=== PATIENT | female | born 1940 | race Caucasian/White ===

== ENCOUNTER 2022-01-27 15:14 | Inpatient (IN) ==
[2022-01-27] MEDS: LR 1,000 ML IV 1,000 ML IV SCH (18:14)
[2022-01-27 22:11] LABS: BASOPHILS # (AUTO) 0.1 X10^3/uL (0.0-0.1); BASOPHILS % (AUTO) 0.9 % (0.2-1.0); EOSINOPHILS # (AUTO) 0.2 x10^3/uL (0.0-0.2); EOSINOPHILS % (AUTO) 3.9 % (0.9-2.9); HEMATOCRIT 35.5 % (36.0-47.0); LYMPHOCYTES # (AUTO) 1.8 X10^3/uL (1.3-2.9); LYMPHOCYTES % (AUTO) 27.8 % (21.0-51.0); MEAN CORPUSCULAR HEMOGLOBIN 31.9 pg (27.0-34.0); MEAN CORPUSCULAR HGB CONC 33.9 g/dL (33.0-35.0); MEAN PLATELET VOLUME 9.5 fL (7.4-11.0); MONOCYTES # (AUTO) 0.6 x10^3/uL (0.3-0.8); MONOCYTES % (AUTO) 9.1 % (0.0-13.0); NEUTROPHILS # (AUTO) 3.7 x10^3/uL (2.2-4.8); NEUTROPHILS % (AUTO) 58.3 % (42.0-75.0); RED BLOOD COUNT 3.78 X10^6/uL (3.5-5.4); RED CELL DISTRIBUTION WIDTH 13.4 % (11.6-16.5); WHITE BLOOD COUNT 6.4 X10^3/uL (3.6-10.0)
--- NOTE | 2022-01-27 22:11 | DR.H&P ---
H&P History & Physical for Day of: H&P Date: 01/27/22 Chief Complaint Chief Complaint: Non -healing wound left Achilles tendon Allergies Allergies Allergy/AdvReac Type Severity Reaction Status Date / Time No Known Drug Allergies Allergy Verified 01/27/22 17:18 History of Present Illness History of Present Illness: Is 81 year old female was referred by doctor Fina for severe ischemia of the left leg with ankle brachial index of 0. 4 and a non- healing wound to the left Achilles tendon. She's had the not healing for several months. She is diabetic but does not complain of any significant pain. She walks very little and has over the last months due to the wound and also probably due to rest pain with she is not categorizing as such . 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 She is following routinely by Dr. Shanks ( cardiology) Mathews. She denies chest pain. She also has a history of diabetes and hypertension. says that she does have some dementia. Past Medical History Past Medical History: Coronary Artery Disease (Treated medically, no stents ), Diabetes and CT (history CT in the past ); denies CHF Family History Family Medical History: Diabetes Mellitus, Cancer and Coronary Artery Disease Social History Does patient currently use any type of tobacco product: No Alcohol Use: None Drug Use: None Prescription drug monitoring program results: PDMP reviewed and no concerns identified Medications Home Medications: No Known Drug Allergies Allergy (Verified 01/27/22 17:18) CONTINUE taking the following medications amlodipine 10 mg PO ONCE 01/27/22 [History] atorvastatin 80 mg PO QHS 01/27/22 [History] carvedilol 25 mg PO BID 01/27/22 [History] cholecalciferol (vitamin D3) [Vitamin D3] 125 mcg PO ONCE 01/27/22 [History] clopidogrel 75 mg PO ONCE 01/27/22 [History] glyburide 2.5 mg PO BID 01/27/22 [History] lisinopril 40 mg PO ONCE 01/27/22 [History] spironolactone 25 mg PO DAILY 01/27/22 [History] Labs Labs: Laboratory POC Glucose (mg/dL) 137 mg/dL (65-99) H 01/27/22 19:31 SARS CoV-2 RNA Rapid EDGAR Negative (NEGATIVE) 01/27/22 15:50 Review of Systems Constitutional: See HPI Eyes: No Symptoms Reported ENT: No Symptoms Reported Respiratory: No Symptoms Reported Cardiovascular: No Symptoms Reported Gastrointestinal: No Symptoms Reported Genitourinary: No Symptoms Reported Musculoskeletal: No Symptoms Reported Physical Exam Vital Signs: Temperature 98.2 F Pulse Rate [Right Radial] 66 Respiratory Rate 18 Blood Pressure [Right Arm] 128/62 O2 Sat by Pulse Oximetry 94 Respiratory: Clear Throughout Cardiovascular: Normal and Other (Palpable femoral pulse on the right. Very weak femoral pulse on the left . Absent pulses both ankles ) : Normal Auscultation: Bowel Sounds: Normal Palpation: Normal Tenderness: Normal Mood Description: Flat Affect: Depressed Speech Pattern: Clear Assessment/Plan (1) Critical limb ischemia of left lower extremity: Status: Acute Plan: will obtain ankle-brachial indices and CT angiogram of the aorta with runoff tomorrow (2) Diabetes 1.5, managed as type 2: Status: Acute Plan: start her start her usual home medications. (3) Hypertension: Status: Acute Plan: Start her usual home medications (4) Chronic ischemic heart disease, unspecified: Status: Acute Plan: will obtain EKG and chest x-ray. This is in anticipation of surgical intervention. Will obtain records from her vice president media relations . (5) Hypercholesteremia: Status: Acute Plan: continue her usual home medications Review H&P Reviewed: Yes Patient was examined?: Yes
[2022-01-27 22:18] LABS: CALCIUM 9.2 mg/dL (8.5-10.1); CARBON DIOXIDE 26.1 mmol/L (21-32); CREATININE 2.02 mg/dL (0.55-1.02)
[2022-01-28] MEDS: LR 1,000 ML IV 1,000 ML IV SCH ×2 (05:13→20:28)
--- NOTE | 2022-01-28 05:22 | RAD ---
PROCEDURE: Chest X-ray 1 View .HISTORY: PRE-OP FOR LEFT FOOT .TECHNIQUE: AP view .COMPARISON: None .TECHNICAL QUALITY: Satisfactory .FINDINGS:Normal size heart .Mediastinum and hilar regions show no masses or lymphadenopathy .Normal central vascularity .No pulmonary consolidation, masses, pleural fluid, or pneumothorax .No acute bony abnormality .IMPRESSION:No active cardiopulmonary disease .Electronically signed by: Grant Cespedes (Jan 28, 2022 05:21:15)
[2022-01-28 06:13] LABS: BLOOD UREA NITROGEN 27 mg/dL (7-18); CARBON DIOXIDE 25.2 mmol/L (21-32); CHLORIDE 106 mmol/L (98-107); CREATININE 1.65 mg/dL (0.55-1.02); SODIUM 139 mmol/L (136-145); eGFR NON BLACK RACES 32 (>60)
[2022-01-28] MEDS: DIABETA PO SCH ×2 (07:14→16:30)
[2022-01-28] MEDS: NORVASC TAB 10 MG PO SCH (08:21)
[2022-01-28] MEDS: ALDACTONE TAB 25 MG PO SCH (08:21)
[2022-01-28] MEDS: COREG TAB 25 MG PO SCH ×2 (08:21→20:30)
[2022-01-28] MEDS: ZESTRIL TAB 40 MG PO SCH (08:21)
[2022-01-28] MEDS: VITAMIN D3 125 mcg (5,000 UNITS) PO SCH (08:23)
[2022-01-28] MEDS ORDERED: LOVENOX INJ 40 MG SYR SC SCH (09:00)
[2022-01-28] MEDS ORDERED: LOVENOX INJ 30 MG SYR SC SCH (09:00)
--- NOTE | 2022-01-28 12:55 | DR.CONSULT ---
CONSULT Consultation for Day of: Date: 01/28/22 Chief Complaint Chief Complaint: Left ankle ulcer Allergies Allergies Allergy/AdvReac Type Severity Reaction Status Date / Time No Known Drug Allergies Allergy Verified 01/27/22 17:18 History of Present Illness History of Present Illness: Mrs. Sosa is a 81 yo female with an ulcer to the left posterior leg along the achilles tendon. Patient was seen at bedside with her besides her. Patient with a Hx of dementia so her helped with information. The wound has been there for over 2 months. It is painful. They are unsure how this started. Patients has been treating this olive oil and honey. They report this has become worse and they made appointment to see Dr. Harden in clinic. She denies any f/c/n/v/calf pain/ sob. Past Medical History Past Medical History: Coronary Artery Disease (Treated medically, no stents ), Dementia, Diabetes and CO (history CO in the past ); denies CHF Family History Family Medical History: Diabetes Mellitus, Cancer and Coronary Artery Disease Social History Does patient currently use any type of tobacco product: No Alcohol Use: None Drug Use: None Medications Home Medications: No Known Drug Allergies Allergy (Verified 01/27/22 17:18) CONTINUE taking the following medications amlodipine 10 mg PO ONCE 01/27/22 [History] atorvastatin 80 mg PO QHS 01/27/22 [History] carvedilol 25 mg PO BID 01/27/22 [History] cholecalciferol (vitamin D3) [Vitamin D3] 125 mcg PO ONCE 01/27/22 [History] clopidogrel 75 mg PO ONCE 01/27/22 [History] glyburide 2.5 mg PO BID 01/27/22 [History] lisinopril 40 mg PO ONCE 01/27/22 [History] spironolactone 25 mg PO DAILY 01/27/22 [History] Review of Systems Musculoskeletal: Leg Pain (Left ankle pain along the achilles. ) Physical Exam Vital Signs: Temperature 98.1 F Pulse Rate [Left Dorsalis 70 Pedis] Pulse Rate [Right Radial] 70 Respiratory Rate 20 Blood Pressure [Right Arm] 152/65 O2 Sat by Pulse Oximetry 95 Cardiovascular: Other (DP and PT pulses are absent b/l. No hair to the distal LE b/l. Cap fill delayed b/l.) Tenderness: Other (Sensation intact to light touch b/l. Left ankle pain along the achilles. ) Skin: Other (Left posterior ankle wound. Eschar noted over the wound. No fluctuance. Serous drainage noted. The wound edges are cold to touch. Periwound erythema noted. No edema. 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 Sosa is a 81 year old female with a PMHx of DM, dementia, and PAD. Wound note to the left posterior leg. Painful on palpation. She is with VSS and NAD. No leukocytosis. Plan: Dressed with betadine, 4x4, cast padding, lightly wrapped tiesha Pending CTA exam. NWB on the left PT evaluation. NPO after midnight. Tentative plan for the OR on Thursday. Vanc 1 gram Q12 Stat MRI left ankle. Will monitor. Please do not hesitate to contact me with questions or concerns. Jonathan Pepper DPM Fellow [phone]
[2022-01-28] MEDS: VANCOMYCIN IV *PREMIX 1 G/200 ML BAG 1 G/200 ML PIGGYBACK IV SCH ×2 (14:15→20:30)
[2022-01-28] MEDS ORDERED: HALDOL PO ONE (15:15)
[2022-01-28] MEDS ORDERED: HALDOL PO PRN ×2 (15:16→16:00)
--- NOTE | 2022-01-28 15:16 | CT ---
HISTORYischemic left leg with tissue loss, planned surgical case. Hypertension and diabetes.STUDYCTA AORTA WITH RUNOFFCOMPARISONNoneTECHNIQUEMultiple CT axial images of the abdomen, pelvis, and lower extremity runoff were obtained before and after using IV contrast. 3D reconstructions utilizing axial MIPS imaging was performed and reviewed. Dose reduction techniques including Automated Exposure Control (AEC) and adjustment of mA and kV were utilized.Stenoses are measured using NASCET criteria.FINDINGSWithout contrast:Atherosclerotic calcification is present in the coronary arteries, aorta, and major branches. Calcified and gas containing gallstones are present.With contrast: No significant aortic stenosis or aneurysm. There is a linear area in the lumen in the infrarenal segment near the origin of the inferior mesenteric artery. This could be a focal dissection or ulcerated plaque within the right lateral wall of the atherosclerotic disease which is present. It only measures about 15 mm in craniocaudal length, 1.1 cm AP and 4 mm wide.All 3 mesenteric vessels are patent. Single patent artery to each kidney.A focal moderate stenosis present in the left common iliac artery. Left external iliac artery, right common iliac and right external iliac arteries are widely patent. Both internal iliac arteries are patent.Left leg: Severe focal stenosis is seen in the proximal superficial femoral artery. Then there is complete occlusion in the distal superficial femoral artery which is reconstituted after the adductor segment by deep femoral artery collaterals. The occluded segment measures between 9 and 10 cm. Popliteal artery has moderate disease but leads to a patent proximal anterior tibial artery. But the anterior tibial artery is occluded in the proximal calf as is the tibioperoneal trunk. Collaterals reconstitute the peroneal artery in the proximal calf and this is the only named branch extending to the foot.Right leg: Mild diffuse femoropopliteal artery disease is present. Severe trifurcation disease is noted with occlusion of all 3 vessels in the proximal calf. Collaterals reconstitute a peroneal artery in the mid calf which extends to the foot.Body: No inflammation around the gallbladder with stones. No hydronephrosis. No bowel obstruction or free air. Pelvic floor relaxation is present with prolapse of the pelvic structures externally into the perineum. I believe this is mostly the vagina and part of the rectum.IMPRESSION1. Moderate left common iliac artery stenosis2. Long segment occlusion of the left SFA3. Severe left trifurcation disease with a single reconstituted peroneal artery extending to the foot4. Severe right trifurcation disease with a single reconstituted peroneal artery extending to the foot5. Pelvic floor relaxation with prolapse6. Focal dissection versus plaque ulceration in the right lateral wall of the distal aortaElectronically signed by: Roldan Cortez (Jan 28, 2022 15:15:23)
[2022-01-28] MEDS ORDERED: LIPITOR TAB 80 MG ONE (19:23)
[2022-01-28] MEDS: SNACK - Diabetic Appropriate PO SCH (20:29)
[2022-01-28] MEDS: LIPITOR TAB 80 MG PO SCH (20:30)
--- NOTE | 2022-01-28 23:45 | NOTE.SOAP ---
Soap Note Note for Day of Date of Exam: 01/28/22 Subjective Data Subjective Data: CTA and ABIs completed . Patient with dementia and has been combative. Objective Data Temperature: 97.5 F Pulse Rate: 68 Respiratory Rate: 18 Blood Pressure: 134/58 O2 Sat by Pulse Oximetry: 97 Objective Data: Has eschar measuring 3 cm x 2 cm x 0.3 cm to left Achilles . CTA shows long segment SFA occlusion at the adductor canal and reconstitution of the popliteal and occlusion of the tib-peroneal trunk and occlusion of the proximal left AT artery. BRITTANIE on left is 0. BRITTANIE on right is 0.82 with occlusion of all trifurcation vessels on the right. Assessment Assessment: Non healing wound left leg with critical limb threatening ischemia. Plan Plan: Dr. Harden to debride left Achilles tomorrow. I will re-vascularize left leg on .
[2022-01-29] MEDS ORDERED: GLUTOSE 15 GEL ORAL PO ONE (05:17)
[2022-01-29 06:15] LABS: BASOPHILS # (AUTO) 0.1 X10^3/uL (0.0-0.1); BASOPHILS % (AUTO) 0.8 % (0.2-1.0); EOSINOPHILS # (AUTO) 0.3 x10^3/uL (0.0-0.2); EOSINOPHILS % (AUTO) 4.4 % (0.9-2.9); HEMATOCRIT 31.6 % (36.0-47.0); HEMOGLOBIN 10.8 g/dL (12.0-16.0); LYMPHOCYTES # (AUTO) 1.8 X10^3/uL (1.3-2.9); LYMPHOCYTES % (AUTO) 26.5 % (21.0-51.0); MEAN CORPUSCULAR HEMOGLOBIN 31.6 pg (27.0-34.0); MEAN CORPUSCULAR HGB CONC 34.1 g/dL (33.0-35.0); MEAN CORPUSCULAR VOLUME 92.6 fL (80.0-100.0); MEAN PLATELET VOLUME 9.4 fL (7.4-11.0); MONOCYTES # (AUTO) 0.7 x10^3/uL (0.3-0.8); MONOCYTES % (AUTO) 9.9 % (0.0-13.0); NEUTROPHILS % (AUTO) 58.4 % (42.0-75.0); RED BLOOD COUNT 3.42 X10^6/uL (3.5-5.4); RED CELL DISTRIBUTION WIDTH 13.7 % (11.6-16.5); WHITE BLOOD COUNT 6.9 X10^3/uL (3.6-10.0)
[2022-01-29 06:27] LABS: ALANINE AMINOTRANSFERASE 26 Units/L (12-78); ALBUMIN 3.1 g/dL (3.4-5.0); ALKALINE PHOSPHATASE 81 Units/L (46-116); ASPARTATE AMINO TRANSFERASE 28 Units/L (15-37); BLOOD UREA NITROGEN 23 mg/dL (7-18); CARBON DIOXIDE 22.7 mmol/L (21-32); CHLORIDE 106 mmol/L (98-107); COR CA(FOR HYPOALB) 9.7 mg/dL (8.5-10.1); CREATININE 1.74 mg/dL (0.55-1.02); SODIUM 137 mmol/L (136-145); TOTAL PROTEIN 6.5 g/dL (6.4-8.2); eGFR NON BLACK RACES 30 (>60)
[2022-01-29] MEDS: DIABETA PO SCH (06:35)
[2022-01-29] MEDS: PERCOCET TAB 5/325 MG PO PRN (07:15)
[2022-01-29] MEDS: VITAMIN D3 125 mcg (5,000 UNITS) PO SCH (09:46)
[2022-01-29] MEDS: ALDACTONE TAB 25 MG PO SCH (09:46)
[2022-01-29] MEDS: VANCOMYCIN IV *PREMIX 1 G/200 ML BAG 1 G/200 ML PIGGYBACK IV SCH ×2 (09:46→21:45)
[2022-01-29] MEDS: ZESTRIL TAB 40 MG PO SCH (09:47)
[2022-01-29] MEDS: COREG TAB 25 MG PO SCH ×2 (09:47→20:45)
[2022-01-29] MEDS: NORVASC TAB 10 MG PO SCH (09:47)
[2022-01-29] MEDS: LR 1,000 ML IV 1,000 ML IV SCH (10:12)
[2022-01-29] MEDS ORDERED: ZOFRAN INJ 4 MG VIAL IVP PRN (10:19)
[2022-01-29] MEDS: ATIVAN INJ 2 MG VIAL IVP PRN (11:37)
[2022-01-29] MEDS ORDERED: HALDOL PO PRN (12:00)
--- NOTE | 2022-01-29 12:37 | NOTE.SOAP ---
Soap Note Note for Day of Date of Exam: 01/29/22 Subjective Data Subjective Data: Patient stable. No more combative outbursts. For debridement of the left ankle wound today by Dr. Harden. MRI today. CTA show long segment occlusion of the left SFA and occlusion all trifurcation vessels. Objective Data Temperature: 98.1 F Pulse Rate: 65 Respiratory Rate: 18 Blood Pressure: 184/77 O2 Sat by Pulse Oximetry: 98 Objective Data: Left foot cool Assessment Assessment: Limb threatening ischemia left foot and leg. Plan Plan: Debride left foot today. Plan peripheral based intervention left leg tomorrow.
[2022-01-29] MEDS ORDERED: MARCAINE 0.25% INJ ONE (12:56)
[2022-01-29] MEDS ORDERED: VANCOMYCIN HCL ONE (12:56)
[2022-01-29] MEDS ORDERED: TOBRAMYCIN SULFATE ONE (12:57)
[2022-01-29] MEDS ORDERED: BETADINE SOLN ONE (13:07)
[2022-01-29] MEDS ORDERED: LR 1,000 ML IV 1,000 ML IV ONE (13:34)
--- NOTE | 2022-01-29 13:39 | MRI ---
HISTORYACHILLES TENDON WOUNDSTUDYEXT LOWER JOINT W/O CONCOMPARISONNone.TECHNIQUEMultiplanar multisequence MRI of the left lower extremity centered on the Achilles tendon without contrast were obtained.FINDINGSVarying degrees of motion artifact limits evaluation. For example there is severe motion artifact on 1 of the sagittal STIR sequences and moderate motion artifact on the axial T2 and coronal PD sequences.There is a wound posterior to the Achilles tendon with exposure of the Achilles tendon. The inferior aspect of the wound is located approximately 4.2 cm from the Achilles tendon insertion at the calcaneal tuberosity image 16 sagittal STIR. The wound measures approximately 1.1 cm medial-lateral image 15 axial T2 and 2 cm craniocaudal image 16 series sagittal STIR. On the sagittal T1 and axial T1 sequence the wound appears to cause high-grade partial-thickness tearing of the superficial fibers of the Achilles tendon. Also there is moderate Achilles tendinosis with additional low-grade interstitial tearing at the level of the wound on image 16 axial T2. There is subcutaneous edema and edema in Kager's fat pad at the distal leg. Non pathologic global marrow signal. No acute fracture, malalignment, or aggressive osseous lesion. This exam is not optimized for evaluation of internal derangement of the ankle.IMPRESSIONLimited study as above. There is a wound posterior to the Achilles tendon at the critical zone. There is likely high-grade partial-thickness tearing of the superficial fibers of the Achilles tendon superimposed on moderate Achilles tendinosis.Subcutaneous edema with edema in Hoffa's fat pad likely due to cellulitis. Differential includes systemic etiology for edema.Electronically signed by: Daniel Lopez (Jan 29, 2022 13:38:33)
[2022-01-29] MEDS ORDERED: ZOFRAN INJ 4 MG VIAL ONE (13:50)
[2022-01-29] MEDS ORDERED: DIPRIVAN VIAL 20 ML ONE (13:50)
[2022-01-29] MEDS ORDERED: PEPCID 20 MG VIAL ONE (13:50)
[2022-01-29] MEDS ORDERED: XYLOCAINE 2 % (PLAIN) ONE (13:50)
[2022-01-29] MEDS ORDERED: FENTANYL VIAL INJ 100 mcg ONE (13:52)
[2022-01-29] MEDS ORDERED: KETAMINE 50 MG/5 ML-NACL SYRNG ONE (13:53)
[2022-01-29] MEDS ORDERED: VERSED ONE (13:54)
[2022-01-29] MEDS ORDERED: LACRI-LUBE S.O.P. ONE (14:46)
[2022-01-29] MEDS ORDERED: PHARMACY COMMENT IV NR (20:30)
[2022-01-29] MEDS: LIPITOR TAB 80 MG PO SCH (20:45)
[2022-01-29] MEDS: SNACK - Diabetic Appropriate PO SCH (20:52)
[2022-01-29 21:49] LABS: CREATININE 1.77 mg/dL (0.55-1.02)
[2022-01-29 21:53] LABS: VANCOMYCIN,TROUGH 32.3 ug/mL (15-20)
[2022-01-30] MEDS: PERCOCET TAB 5/325 MG PO PRN ×3 (04:42→17:34)
[2022-01-30] MEDS: LR 1,000 ML IV 1,000 ML IV SCH ×2 (04:46→10:38)
[2022-01-30 05:17] LABS: BASOPHILS % (AUTO) 0.6 % (0.2-1.0); EOSINOPHILS # (AUTO) 0.2 x10^3/uL (0.0-0.2); EOSINOPHILS % (AUTO) 3.2 % (0.9-2.9); HEMATOCRIT 30.1 % (36.0-47.0); HEMOGLOBIN 10.2 g/dL (12.0-16.0); LYMPHOCYTES # (AUTO) 1.7 X10^3/uL (1.3-2.9); LYMPHOCYTES % (AUTO) 22.9 % (21.0-51.0); MEAN CORPUSCULAR HEMOGLOBIN 31.8 pg (27.0-34.0); MEAN CORPUSCULAR HGB CONC 34.1 g/dL (33.0-35.0); MEAN CORPUSCULAR VOLUME 93.2 fL (80.0-100.0); MEAN PLATELET VOLUME 9.8 fL (7.4-11.0); MONOCYTES # (AUTO) 0.7 x10^3/uL (0.3-0.8); MONOCYTES % (AUTO) 9.3 % (0.0-13.0); NEUTROPHILS # (AUTO) 4.8 x10^3/uL (2.2-4.8); RED BLOOD COUNT 3.22 X10^6/uL (3.5-5.4); RED CELL DISTRIBUTION WIDTH 13.4 % (11.6-16.5); WHITE BLOOD COUNT 7.5 X10^3/uL (3.6-10.0)
[2022-01-30 05:28] LABS: ALANINE AMINOTRANSFERASE 25 Units/L (12-78); ALBUMIN 2.8 g/dL (3.4-5.0); ALKALINE PHOSPHATASE 73 Units/L (46-116); ASPARTATE AMINO TRANSFERASE 23 Units/L (15-37); BLOOD UREA NITROGEN 24 mg/dL (7-18); CALCIUM 8.6 mg/dL (8.5-10.1); CARBON DIOXIDE 23.8 mmol/L (21-32); CHLORIDE 108 mmol/L (98-107); COR CA(FOR HYPOALB) 9.6 mg/dL (8.5-10.1); CREATININE 1.78 mg/dL (0.55-1.02); SODIUM 140 mmol/L (136-145); eGFR NON BLACK RACES 29 (>60)
[2022-01-30] MEDS ORDERED: GLUTOSE 15 GEL ORAL PO PRN (05:31)
[2022-01-30] MEDS ORDERED: GLUTOSE 15 GEL ORAL PO ONE (05:34)
[2022-01-30] MEDS: DIABETA PO SCH (09:30)
[2022-01-30] MEDS: ALDACTONE TAB 25 MG PO SCH (09:31)
[2022-01-30] MEDS: NORVASC TAB 10 MG PO SCH (09:33)
[2022-01-30] MEDS: ZESTRIL TAB 40 MG PO SCH (09:33)
[2022-01-30] MEDS ORDERED: HEPARIN SODIUM IN D5W 75,000 UNITS/1,500 ML BAG ONE (11:26)
[2022-01-30] MEDS ORDERED: MARCAINE 0.5% ONE (11:26)
[2022-01-30] MEDS ORDERED: NS 100 ML IV 100 ML ONE (11:43)
[2022-01-30] MEDS ORDERED: ANCEF VIAL 1 GRAM ONE (11:43)
[2022-01-30] MEDS ORDERED: VERSED ONE (11:50)
[2022-01-30] MEDS ORDERED: DIPRIVAN VIAL 20 ML ONE (11:50)
[2022-01-30] MEDS ORDERED: FENTANYL VIAL INJ 100 mcg ONE (11:50)
[2022-01-30] MEDS ORDERED: KETAMINE 50 MG/5 ML-NACL SYRNG ONE (11:50)
[2022-01-30] MEDS ORDERED: ZOFRAN INJ 4 MG VIAL ONE (12:14)
[2022-01-30] MEDS ORDERED: ROBINUL ONE (12:14)
[2022-01-30] MEDS ORDERED: DECADRON INJ ONE (12:14)
[2022-01-30] MEDS ORDERED: HEPARIN SODIUM INJ 5000 UNITS ONE ×2 (12:21→13:17)
[2022-01-30] MEDS ORDERED: ADRENALINE CHL INJ ONE (12:29)
--- NOTE | 2022-01-30 14:34 | OR.IMMED ---
IMMEDIATE POST-OP NOTE Immediate Post-Op Note Pre-Op Diagnosis: Critical limb threatening ischemia left leg with non-healing w ound Post-Op Diagnosis: Same Procedure: diagnostic aortogram , diagnostic left lower extremity arteriogram , atherectomy and drug coated balloon angioplasty of the left superficial femoral artery, stenting left common iliac artery Description of Procedure: see operative summary Surgeon/First Beater: Marika Findings: complete total occlusion long segment superficial femoral artery at the adductor canal, left common iliac severe stenosis ,complete total occlusion left tibial peroneal trunk. Patient with significant collateral flow to the left foot Specimens Removed: plaque Estimated Blood Loss: 100 cc Drains: NONE Complications: none Discharge Progress Notes: Return to the floor. Monitor blood flow the last leg. Continue antibiotics as per Podiatry Condition: Stable Final Diagnosis: as above
[2022-01-30] MEDS: COREG TAB 25 MG PO SCH ×2 (15:01→21:23)
[2022-01-30] MEDS ORDERED: NovoLIN R (or HumuLIN R) SC PRN (16:01)
[2022-01-30] MEDS ORDERED: ZOFRAN INJ 4 MG VIAL IVP PRN (16:06)
[2022-01-30] MEDS: VITAMIN D3 125 mcg (5,000 UNITS) PO SCH (16:22)
[2022-01-30] MEDS: SNACK - Diabetic Appropriate PO SCH (20:20)
[2022-01-30] MEDS: LIPITOR TAB 80 MG PO SCH (21:23)
[2022-01-30] MEDS: ATIVAN INJ 2 MG VIAL IVP PRN (21:24)
[2022-01-30 22:26] LABS: CREATININE 1.75 mg/dL (0.55-1.02); VANCOMYCIN,TROUGH 19.8 ug/mL (15-20)
[2022-01-31] MEDS ORDERED: VANCOMYCIN IV *PREMIX 1 G/200 ML BAG 1 G/200 ML PIGGYBACK IV ONE (03:30)
[2022-01-31] MEDS: LR 1,000 ML IV 1,000 ML IV SCH (03:43)
[2022-01-31 05:47] LABS: CALCIUM 8.2 mg/dL (8.5-10.1); CARBON DIOXIDE 21.3 mmol/L (21-32); CREATININE 1.64 mg/dL (0.55-1.02)
[2022-01-31] MEDS: DIABETA PO SCH ×2 (06:21→07:24)
[2022-01-31] MEDS ORDERED: LOVENOX INJ 30 MG SYR SC SCH (09:00)
[2022-01-31] MEDS ORDERED: LOVENOX INJ 40 MG SYR SC SCH (09:00)
[2022-01-31] MEDS: ALDACTONE TAB 25 MG PO SCH (09:06)
[2022-01-31] MEDS: VITAMIN D3 125 mcg (5,000 UNITS) PO SCH (09:07)
[2022-01-31] MEDS: COREG TAB 25 MG PO SCH ×2 (09:08→09:31)
[2022-01-31] MEDS: NORVASC TAB 10 MG PO SCH ×2 (09:08→09:20)
[2022-01-31] MEDS: ZESTRIL TAB 40 MG PO SCH (09:09)
--- NOTE | 2022-01-31 11:01 | W.DIS.FURT ---
Summary of Discharge Discharge Summary of Date Date of Exam: 01/31/22 Admission Date Date of Admission: 01/27/22 Admission Diagnosis Hospital Course: 81 year old female with history of diabetes and dementia who presented to Dr. Harden with a non-healing wound to the left Achilles tendon. Doppler studies showed no flow on the left side. She was admitted by in and underwent formal Doppler studies which confirmed ankle-brachial index on the left side of 0. Ankle-brachial index on the right side was 0. 82. CT angiogram showed possible left common iliac stenosis as well as complete total occlusion of the distal left superficial femoral artery with reconstitution of the popliteal artery and complete total occlusion of the tibia peroneal trunk with essentially all trifrucation vessels occluded. On January 29 she underwent debridement of the necrotic left Achilles tendon with placement of antibiotic beads by Dr. Harden .I took her to the operating room on January 30 . On table arteriogram confirmed the significance stenosis of the proximal left common iliac artery as well as the complete total occlusion of the distal left superficial femoral artery with reconstitution of the popliteal artery and tibial peroneal trunk occlusion. In addition there was significant stenosis of the proximal superficial femoral artery The patient had no named vessels of the trifurcation vessels going to the foot, however there was significant collateral flow to the foot. I could not obtain access to any of the distal vessels with either antegrade or retrograde approach. Therefore, she underwent atherectomy and drug-coated balloon angioplasty of the left superficial femoral artery total occlusion distally as well as atherectomy of the proximal superficial femoral artery and stenting of the proximal common iliac artery on the left .She has a Doppler signal in the posterior tibial on the left side now. She did have some combative Behavior while in the hospital but that was resolved with po Haldol. She will be discharged home at her 's request. I have offered her [facility] Facility but he has declined that at this time. We also will have Home Health see the patient. She will follow up with me in one week and arranged for a follow-up with his office as well. Vital Signs: Vital Signs (72 hours) 01/28/22 11:33 01/28/22 16:00 01/28/22 20:00 Temperature 98.1 F 97.9 F 97.5 F L Pulse Rate Pulse Rate [Left Dorsalis Pedis] 70 73 68 Respiratory Rate 20 18 18 Blood Pressure Blood Pressure [Right Arm] 152/65 166/72 134/58 O2 Sat by Pulse Oximetry 95 98 97 01/28/22 23:50 01/28/22 23:55 01/29/22 04:00 Temperature 98.7 F 97.5 F L 98.0 F Pulse Rate 68 Pulse Rate [Left Dorsalis Pedis] 58 L 55 L Respiratory Rate 18 18 18 Blood Pressure 134/58 Blood Pressure [Right Arm] 116/54 136/63 O2 Sat by Pulse Oximetry 97 97 96 01/29/22 07:15 01/29/22 07:53 01/29/22 08:15 Temperature 98.1 F Pulse Rate Pulse Rate [Left Dorsalis Pedis] 65 Respiratory Rate 18 18 18 Blood Pressure Blood Pressure [Right Arm] 184/77 O2 Sat by Pulse Oximetry 98 01/29/22 12:00 01/29/22 12:57 01/29/22 15:00 Temperature 98.4 F 98.1 F 96.4 F L Pulse Rate 65 Pulse Rate [Left Dorsalis Pedis] 49 L 48 L Respiratory Rate 16 18 18 Blood Pressure 184/77 Blood Pressure [Right Arm] 113/52 94/44 O2 Sat by Pulse Oximetry 93 L 98 100 01/29/22 15:15 01/29/22 15:30 01/29/22 15:45 Temperature 96.5 F L 96.8 F L 97.5 F L Pulse Rate Pulse Rate [Left Dorsalis Pedis] 46 L 46 L 49 L Respiratory Rate 18 16 16 Blood Pressure Blood Pressure [Right Arm] 93/46 104/49 100/49 O2 Sat by Pulse Oximetry 100 100 100 01/29/22 16:00 01/29/22 17:00 01/29/22 18:00 Temperature 96.5 F L 97.0 F L 97.8 F Pulse Rate Pulse Rate [Left Dorsalis Pedis] 49 L 54 L 60 Respiratory Rate 16 16 18 Blood Pressure Blood Pressure [Right Arm] 113/53 114/57 131/60 O2 Sat by Pulse Oximetry 100 100 96 01/29/22 19:00 01/29/22 20:00 01/30/22 00:00 Temperature 98.7 F 97.8 F 97.4 F L Pulse Rate Pulse Rate [Left Dorsalis Pedis] 71 71 62 Respiratory Rate 16 16 16 Blood Pressure Blood Pressure [Right Arm] 138/59 131/60 128/58 O2 Sat by Pulse Oximetry 96 96 98 01/30/22 04:00 01/30/22 04:42 01/30/22 05:42 Temperature 98.3 F Pulse Rate Pulse Rate [Left Dorsalis Pedis] 65 Respiratory Rate 20 18 18 Blood Pressure Blood Pressure [Right Arm] 127/62 O2 Sat by Pulse Oximetry 96 01/30/22 08:00 01/30/22 10:41 01/30/22 11:41 Temperature 98.8 F Pulse Rate Pulse Rate [Left Dorsalis Pedis] 56 L Respiratory Rate 15 18 18 Blood Pressure Blood Pressure [Right Arm] 119/59 O2 Sat by Pulse Oximetry 92 L 01/30/22 11:52 01/30/22 12:00 01/30/22 14:15 Temperature 98.8 F 97.7 F 96.1 F L Pulse Rate 65 Pulse Rate [Left Dorsalis Pedis] 54 L 55 L Respiratory Rate 18 12 14 Blood Pressure 184/77 Blood Pressure [Right Arm] 130/58 119/56 O2 Sat by Pulse Oximetry 98 95 98 01/30/22 14:30 01/30/22 14:45 01/30/22 15:00 Temperature 97.5 F L 97.5 F L Pulse Rate Pulse Rate [Left Dorsalis Pedis] 56 L 56 L 51 L Respiratory Rate 12 16 16 Blood Pressure Blood Pressure [Right Arm] 114/56 116/62 114/54 O2 Sat by Pulse Oximetry 97 96 98 01/30/22 15:15 01/30/22 16:00 01/30/22 16:15 Temperature 97.1 F L 97.5 F L 97.4 F L Pulse Rate Pulse Rate [Left Dorsalis Pedis] 52 L 56 L 50 L Respiratory Rate 16 12 20 Blood Pressure Blood Pressure [Right Arm] 129/62 114/56 120/57 O2 Sat by Pulse Oximetry 98 98 100 01/30/22 17:15 01/30/22 17:34 01/30/22 18:15 Temperature Pulse Rate Pulse Rate [Left Dorsalis Pedis] 53 L 55 L Respiratory Rate 15 17 14 Blood Pressure Blood Pressure [Right Arm] 120/56 123/58 O2 Sat by Pulse Oximetry 98 98 01/30/22 18:34 01/30/22 20:00 01/31/22 00:00 Temperature 97.3 F L 97.3 F L Pulse Rate Pulse Rate [Left Dorsalis Pedis] 54 L 54 L Respiratory Rate 20 18 18 Blood Pressure Blood Pressure [Right Arm] 156/64 156/64 O2 Sat by Pulse Oximetry 97 97 01/31/22 04:00 Temperature 97.9 F Pulse Rate Pulse Rate [Left Dorsalis Pedis] 67 Respiratory Rate 18 Blood Pressure Blood Pressure [Right Arm] 126/64 O2 Sat by Pulse Oximetry 93 L Labs: Laboratory Last Values WBC 7.5 X10^3/uL (3.6-10.0) 01/30/22 04:50 RBC 3.22 X10^6/uL (3.5-5.4) L 01/30/22 04:50 Hgb 10.2 g/dL (12.0-16.0) L 01/30/22 04:50 Hct 30.1 % (36.0-47.0) L 01/30/22 04:50 MCV 93.2 fL (80.0-100.0) 01/30/22 04:50 MCH 31.8 pg (27.0-34.0) 01/30/22 04:50 MCHC 34.1 g/dL (33.0-35.0) 01/30/22 04:50 RDW 13.4 % (11.6-16.5) 01/30/22 04:50 Plt Count 161 X10^3/uL (150.0-450.0) 01/30/22 04:50 MPV 9.8 fL (7.4-11.0) 01/30/22 04:50 Neut % (Auto) 64.0 % (42.0-75.0) 01/30/22 04:50 Lymph % (Auto) 22.9 % (21.0-51.0) 01/30/22 04:50 Duval % (Auto) 9.3 % (0.0-13.0) 01/30/22 04:50 Eos % (Auto) 3.2 % (0.9-2.9) H 01/30/22 04:50 Baso % (Auto) 0.6 % (0.2-1.0) 01/30/22 04:50 Neut # (Auto) 4.8 x10^3/uL (2.2-4.8) 01/30/22 04:50 Lymph # (Auto) 1.7 X10^3/uL (1.3-2.9) 01/30/22 04:50 Duval # (Auto) 0.7 x10^3/uL (0.3-0.8) 01/30/22 04:50 Eos # (Auto) 0.2 x10^3/uL (0.0-0.2) 01/30/22 04:50 Baso # (Auto) 0.0 X10^3/uL (0.0-0.1) 01/30/22 04:50 Absolute Nucleated RBC 0.1 /100WBC 01/30/22 04:50 Sodium 135 mmol/L (136-145) L 01/31/22 05:15 Corrected Sodium 137 mmol/L (136-145) 01/31/22 05:15 Potassium 4.7 mmol/L (3.5-5.1) 01/31/22 05:15 Chloride 105 mmol/L (98-107) 01/31/22 05:15 Carbon Dioxide 21.3 mmol/L (21-32) 01/31/22 05:15 BUN 27 mg/dL (7-18) H 01/31/22 05:15 Creatinine 1.64 mg/dL (0.55-1.02) H 01/31/22 05:15 Est GFR (MDRD) Af Amer 39 (>60) L 01/31/22 05:15 Est GFR (MDRD) Non-Af 32 (>60) L 01/31/22 05:15 Glucose 163 mg/dL (65-99) H 01/31/22 05:15 POC Glucose (mg/dL) 146 mg/dL (65-99) H 01/31/22 06:12 Calcium 8.2 mg/dL (8.5-10.1) L 01/31/22 05:15 Corrected Calcium 9.6 mg/dL (8.5-10.1) 01/30/22 04:50 Total Bilirubin 0.70 mg/dL (0.2-1.0) 01/30/22 04:50 AST 23 Units/L (15-37) 01/30/22 04:50 ALT 25 Units/L (12-78) 01/30/22 04:50 Alkaline Phosphatase 73 Units/L (46-116) 01/30/22 04:50 Total Protein 6.0 g/dL (6.4-8.2) L 01/30/22 04:50 Albumin 2.8 g/dL (3.4-5.0) L 01/30/22 04:50 Globulin 3.2 g/dL (2.5-4.5) 01/30/22 04:50 Albumin/Globulin Ratio 0.9 Ratio (1.1-2.1) L 01/30/22 04:50 Vancomycin Trough 19.8 ug/mL (15-20) 01/30/22 21:42 Random Vancomycin 49.4 ug/mL 01/31/22 05:15 SARS CoV-2 RNA Rapid EDGAR Negative (NEGATIVE) 01/27/22 15:50 Reason For Visit: ISCHEMIC LEFT LEG, OPEN WOUND TO ACHILLIS TENDON Discharge Date Discharge Date: 01/31/22 Discharge Diagnosis All Active Problems (Updated 01/28/22 @ 12:38 by Jonathan Pepper) 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 Pt is to keep follow up appointment as instructed and take medications as ordered. Discharge Medications Discharge Medications: No Known Drug Allergies Allergy (Verified 01/27/22 17:18) CONTINUE taking the following medications amlodipine 10 mg PO ONCE 01/27/22 [History] atorvastatin 80 mg PO QHS 01/27/22 [History] carvedilol 25 mg PO BID 01/27/22 [History] cholecalciferol (vitamin D3) [Vitamin D3] 125 mcg PO ONCE 01/27/22 [History] clopidogrel 75 mg PO ONCE 01/27/22 [History] glyburide 2.5 mg PO BID 01/27/22 [History] lisinopril 40 mg PO ONCE 01/27/22 [History] spironolactone 25 mg PO DAILY 01/27/22 [History] Follow up and Referral Follow Up: 1 Week (Marika) 1 Week (Fina) Discharge Disposition Discharge Disposition: Stable Discharge Condition: Stable Discharge Plan Discharge Plan Hospital Course: 81 year old female with history of diabetes and dementia who presented to Dr. Harden with a non-healing wound to the left Achilles tendon. Doppler studies showed no flow on the left side. She was admitted by me and underwent formal Doppler studies which confirmed ankle-brachial index on the left side of 0. Ankle-brachial index on the right side was 0. 82. CT angiogram showed possible left common iliac stenosis as well as complete total occlusion of the distal l eft superficial femoral artery with reconstitution of the popliteal artery and complete total occlusion of the tibia peroneal trunk with essentially all trifrucation vessels occluded. On January 29 she underwent debridement of the necrotic left Achilles tendon with placement of antibiotic beads by Dr. Harden .I took her to the operating room on January 30 . On table arteriogram confirmed the significance stenosis of the proximal left common iliac artery as well as the complete total occlusion of the distal left superficial femoral artery with reconstitution of the popliteal artery and tibial peroneal trunk occlusion. In addition there was significant stenosis of the proximal superficial femoral artery The patient had no named vessels of the trifurcation vessels going to the foot, however there was significant collateral flow to the foot. I could not obtain access to any of the distal vessels with either antegrade or retrograde approach. Therefore, she underwent atherectomy and drug-coated balloon angioplasty of the left superficial femoral artery total occlusion distally as well as atherectomy of the proximal superficial femoral artery and stenting of the proximal common iliac artery on the left .She has a Doppler signal in the posterior tibial on the left side now. She did have some combative Behavior while in the hospital but that was resolved with po Haldol. She will be discharged home at her 's request. I have offered her Half-Way Facility but he has declined that at this time. We also will have Home Health see the patient. She will follow up with me in one week and arranged for a follow-up with his office as well. Patient Disposition: 01 HOME, SELF-CARE Condition: Stable Health Concerns: Post Hospitalization: new medications and changes needed to prevent readmission or further decline. Pt educated and given instructions on all concerns. Care Plan Goals: Healing of left Achilles tendon wound , salvage of left leg. Plan of Treatment: Continue with present treatment and follow up plan. Pt is to keep follow up appointment as instructed and take medications as ordered. Prescription drug monitoring program results: PDMP reviewed and no concerns identified Prescriptions: Continued atorvastatin 80 mg Tablet 80 mg PO QHS RF: 0 carvedilol 25 mg Tablet 25 mg PO BID RF: 0 glyburide 2.5 mg Tablet 2.5 mg PO BID RF: 0 clopidogrel 75 mg Tablet 75 mg PO ONCE RF: 0 spironolactone 25 mg Tablet 25 mg PO DAILY RF: 0 amlodipine 10 mg Tablet 10 mg PO ONCE RF: 0 lisinopril 40 mg Tablet 40 mg PO ONCE RF: 0 cholecalciferol (vitamin D3) [Vitamin D3] 125 mcg (5,000 unit) Tablet 125 mcg PO ONCE RF: 0 Follow ups/Referrals Follow ups/Referrals: Kiran Hairston [Primary Care Provider] - 1 WEEK Instructions Stand Alone Forms: Excuse From Work or School, Precautions for COVID19, [facility], Patient Portal, Social Distancing
[2022-01-31 11:10] VITALS: BP 119/57
--- NOTE | 2022-02-03 11:23 | DR.OPNOTE ---
OP NOTE Pre-Op Diagnosis: Rest pain left LE , BRITTANIE= 0. Non-healing wound left Achilles tendon Post-Op Diagnosis: same Procedure Date Date Of Procedure: 01/30/22 Procedure: PROCEDURE: Diagnostic aortogram , left lower extremity arteriogram , atherectomy and drug coated balloon angioplasty entire left superficial femoral artery NARRATIVE: The patient was taken to the operative suite and placed in the Supine position. The right groin and entire left leg were prepped and draped in sterile fashion. She was given intravenous sedation which was supervised by myself. Time out for the procedure obtained. Ultrasound used to identify the right common femoral artery and the skin overlying it infiltrated with 0. 5% Marcaine . Ultrasound used to guide puncture of the right common femoral artery with a 16 gauge needle and a 0. 012 inch guide wire placed without difficulty. Incision made over the guide wire at the skin level and a micro sheath placed over the guide wire into the right common femoral artery . The small wire exchanged for a 0. 035 inch Advantage glidewire and the micro sheath exchanged for a 5 fr vascular sheath . Flush Catheter was placed over the wire and diagnostic aortogram carried out showing normal aorta with severe stenosis of the proximal left common iliac artery. The flush catheter was used to guide the guide wire down the left side past the obstruction into the left common femoral artery. At this point the sheath in the right femoral artery exchanged for a 7 Fr destination sheath which was parked in the left common femoral artery. Over the guide wire I placed a Trailblazer catheter and selective catheterization carried out with arteriogram which showed severe disease of at least two areas of the proximal left superficial femoral artery with complete total occlusion of the distal left superficial femoral artery over a segment approximately [address] to the adductor canal with reconstitution of the popliteal artery. There was complete total occlusion of the left tibial peroneal trunk. All the trifurcation vessels appeared to be occluded but there was significant collateral flow to the foot. I attempted to place a wire in the tibial peroneal trunk and the anterior tibial artery from above but was unsuccessful. I also attempted retrograde approach from the ankle for both the posterior tibial and anterior tibial arteries but also was unsuccessful. At this point I elected to take care of the inflow problem and see if her collateral flow would be enough to heal this wound of her left foot. The patient had been given 5000 units of Heparin at the beginning of the case. A 0.014 inch spider basket and wire was deployed into the popliteal artery and then the Hawk one atherectomy device placed performing atherectomy of the proximal left superficial femoral artery and across the complete total occlusion of the distal superficial femoral artery . The distal superficial femoral artery was ballooned open with a 5 mm by 200 mm [employer] drug- coated balloon which was held open for three minutes. This removed and the proximal superficial femoral artery ballooned open with a 5 mm by 100 mm [employer] drug coated balloon balloon. There was overlap between the two balloon inflations. This also was inflated for 3 minutes and then removed. Post- procedure arteriogram showed an excellent result with Patent flow all the way to the distal popliteal artery with significant collateral flow to the foot. At this point the sheath was pulled back into the takeoff of the left common iliac artery and repeat arteriogram confirmed the stenosis of the proximal common iliac artery on the left side and I placed an 8 mm by 37 mm [employer] stent which was ballooned open and repeat arteriogram showed excellent results. I had given an additional dose of 3000 units of Heparin in 1 hour. The destination sheath was pulled back into the aorta and it exchanged over the wire for an Angio-seal device which was used to close the puncture of the right common femoral artery. The patient was given 30 mg of IV Protomine . The patient was taken to same day surgery. I could hear a Doppler signal in the left posterior tibial artery at the completion of the case with a warm left foot. Type of Anesthesia: Local (0.5 % Marcaine) Anesthesia Comment: plus MAC Findings: severe stenosis proximal left superficial femoral artery, complete total occlusion distal left superficial femoral artery extending to the adductor canal ,patent left popliteal artery, complete total occlusion of the tibial peroneal trunk and the anterior tibial artery with significant collateral flow to the Foot and Ankle . Specimen/Pathology: plaque Type of Fluids Used:: Lactated Ringers Total Amount of Fluid Infused:: 450 cc EBL: 100 cc Drains/Tubes Placed: None Drains/Tubes Comment: none Hardware: stent left common iliac artery Complications:: none Needle/Sponge Count:: correct Disposition/Condition: Pt. tolerated procedure without difficulty. YA Taken back to the 2nd floor in stable condition.
== END 2022-01-31 13:40 | disposition home health service (06) | DRG 271 ==
LOC: MED/SURG 15:15
PROVIDERS: ADMIT Surgery; ATTEND Surgery
DX: I10 Essential (primary) hypertension; E11.65 Type 2 diabetes mellitus with hyperglycemia; B96.4 Proteus (mirabilis) (morganii) as the cause of diseases classified elsewhere; I70.222 Atherosclerosis of native arteries of extremities with rest pain, left leg; I25.9 Chronic ischemic heart disease, unspecified; B96.5 Pseudomonas (aeruginosa) (mallei) (pseudomallei) as the cause of diseases classified elsewhere; E11.51 Type 2 diabetes mellitus with diabetic peripheral angiopathy without gangrene; E78.00 Pure hypercholesterolemia, unspecified; L97.323 Non-pressure chronic ulcer of left ankle with necrosis of muscle